=== PATIENT | female | born 1985 | race Caucasian/White ===

== ENCOUNTER 2021-05-27 15:43 | Emergency (ER) | payer SELFPAY ==
[~2021-05-27] VITALS: Ht 167.6 cm; Wt 69.0 kg
[2021-05-27] MEDS ORDERED: ACETAMINOPHEN 325MG TABLET PO ONE (18:45)
[2021-05-27] MEDS ORDERED: IBUPROFEN 600MG TABLET PO ONE (18:45)
[2021-05-27 19:03] VITALS: BP 130/88
== END 2021-05-27 19:05 | disposition home or self-care (01) ==
LOC: ER 15:43
DX: M62.830 Muscle spasm of back (principal)
CPT/HCPCS: 72070; 72100; 81025; 99284